=== PATIENT | female | born 1985 | race Two or more races ===

== ENCOUNTER 2021-12-11 20:21 | Emergency (ER) | payer OTHER, SELFPAY ==
[2021-12-11 20:29] VITALS: BP 159/85; PULSE 85; RESP 18; TEMP 36.9; O2SAT 99; BMI 41.8
[2021-12-11 22:29] LABS: MANUAL DIFF FLAG NO
--- NOTE | 2021-12-11 22:30 | ED_ITS ---
HPI - General Adult General Chief complaint: General Medical Stated complaint: hemorrhoid Time Seen by Provider: 12/11/21 22:19 Source: patient and family Mode of arrival: ambulatory Limitations: no limitations History of Present Illness HPI narrative: 36-year-old female no significant medical history presents to the emergency department with concerns possibly having a hemorrhoid. Patient tells me she has been having this for about 2 weeks. She tells me that this started after a bout of straining after patient being constipated. She tells me that she passed hard stool and then she noticed a bump in her rectum. She tells me that yesterday she noted blood in her stool, and in the toilet seat. She tells me it is bright red blood. She tells me that she has a stinging/burning sensation when she has bowel movements. No family or personal history of colorectal cancer, no colonoscopy hx. This is never happened to her before. She denies any dizziness, weakness, headache, vision changes, fatigue, nausea, vomiting, abdominal pain, chest pain, shortness of breath. Onset (ago): week(s) (2) Location: buttocks Radiation: non-radiation Severity: moderate Related Data Previous Rx's Medication Instructions Recorded docusate sodium 100 mg capsule 100 mg PO BID #20 cap 12/11/21 (Colace) pramoxine 1 % topical foam 1 appl MA BID #15 g 12/11/21 (Proctofoam) sennosides 8.6 mg tablet (senna) 8.6 mg PO BEDTIME #14 tab 12/11/21 Allergies Allergy/AdvReac Type Severity Reaction Status Date / Time No Known Allergies Allergy Verified 12/11/21 20:31 Review of Systems Review of Systems: Constitutional : No Weight loss, No Fever, No Chills, No Fatigue, No Malaise ENT/Mouth : No sore throat, No Rhinorrhea Eyes: No Eye Pain, No Swelling, No Redness Cardiovascular : No Chest Pain, No SOB, No Dyspnea on Exertion, No Orthopnea, No Edema, No Palpitations Respiratory : No Cough, No Sputum, No Wheezing Gastrointestinal : No Nausea, No Vomiting, No Diarrhea, No Constipation, No abdominal Pain, No Hematochezia, No Melena Genitourinary : No Dysuria, No Urinary Frequency, No Hematuria, Musculoskeletal : No joint pain, No Myalgias, No Joint Swelling Skin : No Skin Lesions, No rash Neuro : No Weakness, No Numbness, No Dizziness, No Headache Psych : No Anxiety/Panic, No Depression All other systems reviewed and are negative Yes all other systems are reviewed and are negative [facility] Past Medical History Attestation statement: The following information was validated with the patient. Source: old records reviewed and nursing notes reviewed Social History Social History Advance Directives: No Advance Directives Information Provided: No Physical Exam ED Vital Signs: Vital Signs - 24 hr 12/11/21 20:29 Temperature 98.5 F Pulse Rate 85 Respiratory Rate 18 Blood Pressure 159/85 H Pulse Oximetry 99 BMI result Body Mass Index 41.8 VSS Appearance: Alert.? Oriented X3.? No acute distress.? Head: Normocephalic, atraumatic, no step-offs or deformities Eyes: Pupils equal, round and reactive to light.? ENT: Pharynx normal.? Neck: Normal inspection.? Neck supple.? CVS: Normal heart rate and rhythm.? Pulses normal.? Respiratory: No respiratory distress.? Breath sounds normal.? Abdomen: Soft and nontender.? Skin: Skin warm and dry.? Normal skin color.? Normal skin turgor.? Rectal exam: Nonthrombosed external hemorrhoid noted and possible internal hemorrhoids noted non bleeding Extremities: No lower extremity edema.? No calf ttp. 5/5 strength to bilateral upper and lower extremities Back: No midline tenderness, no C-spine tenderness, full range of motion, no CVA tenderness bilaterally Neuro: Oriented X 3.? No motor deficit.? No sensory deficit. CN 2-12 intact Course Reevaluation(s) Reevaluation #1: History and physical examination consistent with hemorrhoid. Labs with no acute findings. OBS negative. At this time patient will be discharged home with Proctofoam. Advised her to return new or worsening symptoms. Outlined is on her discharge. Comfortable discharge home Time: 23:41 Medical Decision Making [facility] Narrative Medical decision making narrative: 2340 36 yo f presents w/ concerns of hemorrhoids x2 weeks, sometimes she tells me that they bleed. Physical examination significant for non thrombosed, nonincarcerated external hemorrhoid, and possibly internal hemorrhoids. Rectal exam was done OBS was sent to the lab. Lungs clear. Regular rate and rhythm. Abdomen soft nontender nondistended. Neuro exam nonfocal. Vital signs stable. Plan at this time is to obtain a CBC to look at patients hemoglobin and hematocrit, I will also obtain an OBS. Unlikely that this is a GI bleed, likely bleeding hemorrhoids or anal fissure. Medical Records Medical records reviewed: Yes I reviewed the patient's medical records. Lab Data Lab results reviewed: Yes I reviewed the patient's lab results. Result diagrams: 12/11/21 22:23 Labs: Lab Results 12/11/21 12/11/21 Range/Units 22:23 22:23 WBC 11.0 H (4.8-10.8) X10*3/uL RBC 4.16 L (4.20-5.50) X10*6/uL Hgb 11.7 L (12.0-16.0) g/dl Hct 35.8 L (37.0-47.0) % MCV 86.1 (80.0-98.0) fL MCH 28.1 (27.0-33.0) pg MCHC 32.7 (31.0-35.0) g/dl RDW 13.5 (11.0-16.0) % Plt Count 275 (160-400) X10*3/uL MPV 10.8 (9.4-12.3) fL Immature Gran % (Auto) 0.4 (0.0-0.4) % Neut % (Auto) 69.9 (45-73) % Lymph % (Auto) 23.2 (20-40) % [place] % (Auto) 4.2 (2-11) % Eos % (Auto) 1.9 (0-4) % Baso % (Auto) 0.4 (0-2) % Lymph # (Auto) 2.6 (1.2-4.9) X10*3/uL [place] # (Auto) 0.5 (0.1-1.2) X10*3/uL Eos # (Auto) 0.2 (0.0-0.4) X10*3/uL Baso # (Auto) 0.0 (0.0-0.2) X10*3/uL Abs Immat Gran (auto) 0.04 H (0.00-0.03) X10*3/uL Absolute Neuts (auto) 7.7 (2.0-8.3) x10*3/uL Absolute Nucleated RBC 0.000 (0.0-0.012) X10*3/uL Nucleated RBC % (auto) 0.0 (0.0-0.2) /100WBC Stool Occult Blood NEGATIVE (NEGATIVE) Critical Care Time Critical Care Time Critical Care Time: No Discharge Plan Discharge Clinical Impression: Acute hemorrhoid Patient Disposition: Home, Self-Care Instructions: Hemorrhoids (ED) Additional Instructions: Take your medications as prescribed. If you were prescribed antibiotics today, it is important that you take your medication to their entirety, do not skip any doses, do not finish them early. Follow-up with your primary care provider this week. Return to the emergency department with new or worsening symptoms. Such as fevers, chills, chest pain, shortness of breath, nausea, vomiting, dizziness, headache, vision changes, lethargy, dizziness, weakness, worsening bleeding In case of emergency call 911 Your rectal exam did not show blood. Your blood work showed that your hemoglobin and hematocrit were stable. Prescriptions: New pramoxine [Proctofoam] 1 % foam 1 appl MA BID Qty: 15 0RF sennosides [senna] 8.6 mg tablet 8.6 mg PO BEDTIME Qty: 14 0RF docusate sodium [Colace] 100 mg capsule 100 mg PO BID Qty: 20 0RF Referrals: Physician,Unknown J [Primary Care Provider] - 3 days Stand Alone Forms: Work/School Release Interventions: ED Discharge Assessment Last Done: 12/11/21 23:12 Discharge Date/Time: 12/11/21 23:12
[2021-12-11 22:34] LABS: OBS Int Ctl Valid YES; OBS1 NEGATIVE (NEGATIVE)
[2021-12-11 22:37] LABS: Basophils Percent Auto 0.4 % (0-2); Eosinophils Absolute Auto 0.2 X10*3/uL (0.0-0.4); Eosinophils Percent Auto 1.9 % (0-4); Hematocrit 35.8 % (37.0-47.0); Hemoglobin 11.7 g/dl (12.0-16.0); Imm Gran Abs Auto 0.04 X10*3/uL (0.00-0.03); Imm Gran Pct Auto 0.4 % (0.0-0.4); Lymphocytes Absolute Auto 2.6 X10*3/uL (1.2-4.9); Lymphocytes Percent Auto 23.2 % (20-40); Mean Corpuscular HGB Conc 32.7 g/dl (31.0-35.0); Mean Corpuscular Hemoglobin 28.1 pg (27.0-33.0); Mean Corpuscular Volume 86.1 fL (80.0-98.0); Mean Platelet Volume 10.8 fL (9.4-12.3); Monocytes Absolute Auto 0.5 X10*3/uL (0.1-1.2); Monocytes Percent Auto 4.2 % (2-11); Neutrophils Absolute Auto 7.7 x10*3/uL (2.0-8.3); Neutrophils Percent Auto 69.9 % (45-73); Platelet Count 275 X10*3/uL (160-400); Red Blood Count 4.16 X10*6/uL (4.20-5.50); Red Cell Distribution Width 13.5 % (11.0-16.0)
== END 2021-12-11 23:12 | disposition home or self-care (01) ==
PROVIDERS: Physician Assistant; Emergency Provider Internal Medicine
DX: K64.9 Unspecified hemorrhoids (principal); Z79.899 Other long term (current) drug therapy
CPT/HCPCS: 36415; 82272; 85025; 99283; 99284

== ENCOUNTER 2025-03-11 14:39 | Outpatient (REF) | payer OTHER, SELFPAY ==
--- NOTE | ~2025-03-11 | XR_ITS ---
EXAMINATION: XR KNEE, LEFT CLINICAL INFORMATION: M25.562 - Pain in left knee COMPARISON: None available. TECHNIQUE: AP view bilateral knees standing, lateral and patellofemoral views left knee. FINDINGS: RIGHT KNEE: No fracture, dislocation, or suspicious bone lesion. Mild medial compartment joint space narrowing. Intramedullary cassie with stabilization screw within the tibia. Normal soft tissues. LEFT KNEE: No fracture, dislocation, or suspicious bone lesion. Normal alignment. There is minimal medial compartment joint space narrowing. Lateral and patellofemoral compartment joint spaces are preserved. There is mild lateral patellar tilt. There is a small suprapatellar joint effusion suspected. Normal soft tissues. XR/XR knee LT 3V IMPRESSION: 1. Mild BILATERAL knee medial compartment joint space narrowing. 2. LEFT knee demonstrating mild lateral patellar tilt and a small suprapatellar joint effusion. Electronically signed by: Ridge Tee MD 03/11/2025 03:13 PM EDT
== END 2025-03-11 14:40 | disposition home or self-care (01) ==
LOC: HO.HOSX 14:39
PROVIDERS: PCP Family Medicine; Visit Provider Physician Assistant
DX: M22.2X2 Patellofemoral disorders, left knee (principal); M25.562 Pain in left knee; M25.462 Effusion, left knee; Z98.890 Other specified postprocedural states
CPT/HCPCS: 73562; 99202

== ENCOUNTER 2025-03-11 14:39 | Outpatient (AMB) | payer OTHER, SELFPAY ==
--- NOTE | 2025-03-11 14:44 | A.OFFVIS_ITS ---
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 Patient was seen by her PCP, and was referred to orthopedics. Patient reports mild shooting pain and clicking with certain movements of her leg, that has been present for about 2 months. States about 2 weeks prior to booking her appointment she has been swelling in her knee that is traveling down her leg making it difficult to bend at her knee. She does not recall injury however her pain presented about a week after she was performing leg exercises at the gym. No other treatment. Hx of right knee surgery about 7 years ago in [place]. 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 She states the pain has been presents for two months and recalls doing an exercise at the gym which caused her pain. She states she was using the leg extension machine when she felt a pain in her knee cap. Since then, she has has discomfort with loading type activities such as squatting, bending and stairs. She has tried occassional IBU with minimal relief. No other treatment to date. 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 Trace joint effusion. Full ROm with crepitus. Retropatellar tenderness laterally with medial sided joint tenderness. No ligamentous laxity. Calf supple, non tender. NVI. Results Reviewed Results Reviewed: XR knee LT 3V IMPRESSION: 1. Mild BILATERAL knee medial compartment joint space narrowing. 2. LEFT knee demonstrating mild lateral patellar tilt and a small suprapatellar joint effusion. Assessment & Plan Assessment & Plan (1) Patellofemoral syndrome, left: Code(s): M22.2X2 - Patellofemoral disorders, left knee Category: Medical Plan: We discussed options which include PT and NSAIDs. I did place an order for PT to work on rom, strength and conditioning exercises. I recommend IBU 800mg tabs po bid x2 weeks for acute flare up. She will modify her activities to avoid excess load on the patella. If symptoms persist or worsen over the next 3-4 weeks, we did discuss the benefits of steroid injection and she will contact me for this, otherwise, f/u prn. Orders: Orders XR knee LT 3V 03/11/25 M25.562 - Pain in left knee Medications: New ibuprofen 800 mg PO Q8H PRN 90 tabs 3RF pain 30 days S52.209D - Unspecified fracture of shaft of unspecified ulna, subsequent encounter for closed fracture with routine healing Discontinued docusate sodium (Colace) Discontinued Reason: Patient no longer taking 100 mg PO BID 20 caps 0RF hydrocortisone acetate (Anusol-HC) Discontinued Reason: Patient no longer taking 25 mg GA BID 24 ea 0RF pramoxine 1% (Proctofoam) Discontinued Reason: Patient no longer taking 1 appl GA BID 15 grams 0RF sennosides (senna) Discontinued Reason: Patient no longer taking 8.6 mg PO BEDTIME 14 tabs 0RF Coding Level of Care Code New Pt Level 3 (97520) Complex EM visit Add On G2211 Diagnoses Patellofemoral syndrome, left M22.2X2
[2025-03-11 15:02] VITALS: BMI 41.5
--- OUTSIDE RECORDS SUMMARY | 2025-03-11 15:28 | XMS_ITS | Encounter Summary ---
Author Organization [facility] Address [address] [place] [address] Care Team Providers Care Janitorial Services Supervisor Name Role Phone Physician, Pcp Unknown Primary Care Provider Gabrielle vailable Encounter Details Date Type Department Care Team (Latest Contact Info) Description 12/10/2024 Lab Requisition [facility] - Main Lab [address] [facility] [place] [address] Vikki Pereira MD [address] [address] Encounter for gynecological examination (general) (routine) without abnormal findings Social History Tobacco Use Types Packs/Day Years Used Date Smoking Tobacco: Never Assessed Comments Unknown Sex and Gender Information Value Date Recorded Sex Assigned at Not on file Legal Sex Female 1:41 PM EDT Gender Identity Not on file Sexual Orientation Not on file documented as of this encounter Plan of Treatment Not on file documented as of this encounter Visit Diagnoses Diagnosis Encounter for gynecological examination (general) (routine) without abnormal findings documented in this encounter Care Teams Janitorial Services Supervisor Relationship Specialty Start Date End Date Physician, Pcp Unknown PCP - General 12/10/24 documented as of this encounter
== END 2025-03-11 15:28 | disposition home or self-care (01) ==
LOC: HO.HOS 14:39
PROVIDERS: PCP Family Medicine; Visit Provider Physician Assistant
DX: M22.2X2 Patellofemoral disorders, left knee (principal)
CPT/HCPCS: 99203

== ENCOUNTER → 2025-03-11 14:48 | Outpatient (BNV) | payer OTHER, SELFPAY | PROVIDERS: PCP Family Medicine; Visit Provider Radiology Diagnostic Radiology | DX: M25.562 Pain in left knee (principal) | CPT/HCPCS: 73562 ==

== ENCOUNTER 2025-08-05 14:46 | Outpatient (AMB) | payer OTHER, SELFPAY ==
--- NOTE | 2025-08-05 14:53 | A.OFFVIS_ITS ---
Vital Signs 08/05/25 14:56 Height 5 ft 7 in Weight 265 lb BMI 41.5 Intake Visit Reasons: OV-Lt knee pain f/u Intake Note: Palak is a 40 year old female who presents today for a follow up of left knee pain. At her last visit she was referred to physical therapy, recommended ibuprofen 800mg twice a day for 2 weeks for acute flare ups. Suggested to modify her activities and avoid excess load on patella. Today patient reports ongoing stiffness with bending of knee. She continues to have swelling in her knee. States stair use has gotten worse since her last visit. Finds no relief with ibuprofen. Allergies No Known Allergies Allergy (Verified 08/05/25 14:56) Medication List - Last Reconciled 08/05/25 by Isabel Sarkar PA-C No Known Home Meds HPI Comments Details: History of Present Illness The patient is a 40 year old female presenting for follow-up of persistent knee pain. She was last seen in the summer and had trialed physical therapy and anti- inflammatory medications, which did not provide significant help. The patient reports that the pain is now most pronounced when going up and down stairs, which she has to do slowly. The patient's symptoms are consistent with prior x-ray findings showing slight lateralization of the patella, causing rubbing on the femur with flexion and extension. She has also made an effort to lose weight. She denies any history of diabetes, acid reflux, or stomach bleeds. Social History - Activity: The patient walks during work. 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 - Reports a crunching sensation in the knee. - Constitutional: Denies diabetes. - Gastrointestinal: Denies history of acid reflux or stomach bleeds. Physical Exam Exam Exam: Physical Exam - Musculoskeletal: Examination of the knee reveals palpable crepitus. - Palpation elicits a sensation of pressure without chela pain. Vital Signs: BMI result Body Mass Index 41.5 Office Procedures AMB Joint Injection/Aspiration Joint Injection/Aspiration Primary Site: Left Knee Prep: site was prepped using aseptic technique, ethochloride spray was applied and injection warnings given Injected: 40 mg of, Decadron, with 3 mL of, 1% plain Lidocaine, 0.25% Bupivacaine and in the joint Approach Used: anterolateral Procedure: The patient tolerated the procedure well and there was some relief with the local anesthesia Coding 60417 - Glenohumeral/Tronchanteric Bursa/Intraarticular Procedure code (CPT) selection complete Assessment & Plan Assessment & Plan (1) Patellofemoral syndrome, left: Code(s): M22.2X2 - Patellofemoral disorders, left knee Category: Medical Plan 1. Patellofemoral Pain Syndrome The patient's knee pain is attributed to patellofemoral irritation, described as a chronic soft, irritated spot behind the patella, which is consistent with X- ray findings of a laterally displaced patella. Previous trials of physical therapy and anti-inflammatories have provided limited relief. The plan is to administer a cortisone injection mixed with lidocaine into the knee joint to directly address the inflammation. A prescription for naproxen will be provided for twice-daily use as needed for intermittent flare-ups. She was counseled to use it occasionally due to potential kidney side effects with long-term use. The patient was advised to avoid activities that elicit pain, such as deep bending, squatting, and excessive stair climbing. The goal of the injection is to reduce inflammation and pain to a level where she can progress with strengthening exercises targeting the quadriceps, hamstrings, and gluteal muscles. We also discussed medications, and I will prescribe naproxen to try instead of ibuprofen. I counseled her on the potential for kidney side effects with long- term NSAID use and advised taking it only occasionally for flare-ups. Consent The risks, benefits, and alternatives to a cortisone injection in the knee were discussed with the patient. It was explained that the procedure involves injecting a mixture of cortisone and lidocaine directly into the joint to reduce inflammation and pain. The patient was informed that the full effect may take from a couple of days to a couple of weeks to become apparent. Alternatives, including continuing with avoidance of painful activities and oral anti- inflammatories, were implicitly discussed as the current, less effective management. The patient understood the proposed treatment and provided verbal consent to proceed with the injection. Patient was informed and verbally consented to the use of an ambient scribe for clinic note documentation during this visit. Medications: New naproxen 500 mg PO BID 60 tabs 3RF 30 days Coding Level of Care Code Est Pt Level 3 (72699) Add On Problem Visit Only Diagnoses Patellofemoral syndrome, left M22.2X2 CPT Codes Coding - Joint 7: 13190 - Glenohumeral/Tronchanteric Bursa/Intraarticular ([id number])
[2025-08-05 14:56] VITALS: BMI 41.5
--- OUTSIDE RECORDS SUMMARY | 2025-08-05 21:15 | XMS_ITS | Encounter Summary ---
Author Organization [facility] Address [address] [place] [address] Care Team Providers Care Fur Glazer Name Role Phone Physician, Pcp Unknown Primary Care Provider Gabrielle vailable Encounter Details Date Type Department Care Team (Latest Contact Info) Description 12/12/2024 Lab Requisition [facility] - Main Lab [address] [place] [address] Vikki Pereira MD [address] [phone] Encounter for screening for infections with a predominantly sexual mode of transmission Social History Tobacco Use Types Packs/Day Years Used Date Smoking Tobacco: Never Assessed Comments Unknown Sex and Gender Information Value Date Recorded Sex Assigned at Not on file Legal Sex Female 1:41 PM EDT Gender Identity Not on file Sexual Orientation Not on file documented as of this encounter Plan of Treatment Not on file documented as of this encounter Procedures Procedure Name Priority Date/Time Associated Diagnosis Comments CHLAMYDIA TRACHOMATIS AND NEISSERIA GONORRHOEAE BY TMA, THINPREP Routine 12/10/2024 12:00 AM EDT Encounter for screening for infections with a predominantly sexual mode of transmission PAP SMEAR Routine 12/10/2024 12:00 AM EDT Encounter for screening for infections with a predominantly sexual mode of transmission documented in this encounter Results * Chlamydia trachomatis and neisseria gonorrhoeae by tma, thinprep (12/10/2024 12:00 AM EDT) N. gonorrhoeae, RNA Probe Negative Negative LAB MICROBIOLOGY METHOD 12/12/2024 12:16 PM EDT [facility] Chlamydia, RNA Probe Negative Negative LAB MICROBIOLOGY METHOD 12/12/2024 12:16 PM EDT [facility] Brushing/Spatula Cervix uteri structure / Unknown 12/10/2024 12/12/2024 6:29 AM EDT Vikki Pereira MD LAB CYTOLOGY ORDERABLES Final Result [facility] [address] [place] [address], * Pap smear (12/10/2024 12:00 AM EDT) Interpretation Negative for intraepithelial lesion or malignancy 12/17/2024 11:52 AM EDT [facility] at 1152 EDT Other Findings Shift in saad suggestive of bacterial vaginosis 12/17/2024 11:52 AM T [facility] Specimen Adequacy Satisfactory for evaluation, endocervical/aguirre sformation zone component present 12/17/2024 11:52 AM EDT [facility] Pap Methodology Liquid Based Pap Test 12/17/2024 11:52 AM EDT [facility] Disclaimer The Pap test is a screening test which carries an inherent false negative rate. These test results should be correlated with the patient's clinical findings and history. This Pap test was processed using an automated screening system. Technical cytopathology services provided by [facility], at [address] [place] [id number] (CLIA # [id number]/Sandy Schuler MD, Features Reporter.) 12/17/2024 11:52 AM EDT [facility] Console Pap Interpretation Reported 12/17/2024 11:52 AM [facility] Brushing/Spatula Cervix uteri structure / Unknown 12/10/2024 12/12/2024 6:29 AM EDT us Vikki Pereira MD LAB CYTOLOGY ORDERABLES Final Result [facility] [address] [place] [address], documented in this encounter Visit Diagnoses Diagnosis Encounter for screening for infections with a predominantly sexual mode of transmission documented in this encounter Care Teams Fur Glazer Relationship Specialty Start Date End Date Physician, Pcp Unknown PCP - General 12/10/24 documented as of this encounter
--- OUTSIDE RECORDS SUMMARY | 2025-08-05 21:15 | XMS_ITS | Encounter Summary ---
Author Organization [facility] Address [address] [place] [address] Care Team Providers Care Scrubber System Attendant Name Role Phone Physician, Pcp Unknown Primary Care Provider Gabrielle vailable Encounter Details Date Type Department Care Team (Latest Contact Info) Description 12/10/2024 Lab Requisition [facility] - Main Lab [address] [facility] [place] [address] Vikki Pereira MD [address] [phone] Encounter for gynecological examination (general) [...] findings documented in this encounter Care Teams Scrubber System Attendant Relationship Specialty Start Date End Date Physician, Pcp Unknown PCP - General 12/10/24 documented as of this encounter
--- OUTSIDE RECORDS SUMMARY | 2025-08-05 21:15 | XMS_ITS | Clinical Summary ---
Author Organization [address] [facility] Address [address] [place] [address] Phone Care Team Providers Care Board Setter Name Role Phone Physician, Pcp Unknown Primary Care Provider Gabrielle vailable Social History Tobacco Use Types Packs/Day Years Used Date Smoking Tobacco: Never Assessed Comments Unknown Sex and Gender Information Value Date Recorded Sex Assigned at Not on file Legal Sex Female 1:41 PM EDT Gender Identity Not on file Sexual Orientation Not on file Plan of Treatment Health Maintenance Due Date Last Done Comments DTaP,Tdap,and Td Vaccines (1 - Tdap) 2005 Hepatitis B Vaccines (1 of 3 - 19+ 3-dose series) 2005 HPV Vaccines (1 - 3-dose SCD M series) 2013 Depression Screening 08/22/2024 HIV Screening 12/10/2024 Hepatitis C Screening 12/10/2024 Social Influencers of Health Screening 12/10/2024 COVID-19 Vaccine ( - 2024-2 6 season) 2025 10/04/2021, 02/01/2021, 01/04/2021 Influenza Vaccine (#1) 2025 Cervical Cancer Screening: P ap Smear 12/11/2027 12/10/2024 RSV Immunization Adult Patients (1 - 1-dose 75+ series) 2061 HIB Vaccines Aged Out No longer eligi ble based on patient's age to complete this topic Hepatitis A Vaccines Aged Out No long er eligible based on patient's age to complete this topic IPV Vaccines Aged Out No longer eligi ble based on patient's age to complete this topic MMR Vaccines Aged Out No longer eligi ble based on patient's age to complete this topic Meningococcal ACWY Vaccine Aged Out N o longer eligible based on patient's age to complete this topic Meningococcal B Vaccine Aged Out No l onger eligible based on patient's age to complete this topic Pneumococcal Vaccine: Pediatrics (0 to 5 Years) and At-Risk Patients (6 to 49 Years) Aged Out No longer eligible b ased on patient's age to complete this topic RSV Immunization Patients Under 20 months Aged Out No longer eligible b ased on patient's age to complete this topic Varicella Vaccines Aged Out No longer eligible based on patient's age to complete this topic Procedures Procedure Name Priority Date/Time Associated Diagnosis Comments PAP SMEAR Routine 12/10/2024 12:00 AM EDT Encounter for screening for infections with a predominantly sexual mode of transmission from Last 3 Months or Most Recently Relevant to Health Maintenance Results * Pap smear (12/10/2024 12:00 AM EDT) Interpretation Negative for intraepithelial lesion or malignancy 12/17/2024 11:52 AM EDT [facility] at 1152 EDT Other Findings Shift in saad suggestive of bacterial vaginosis 12/17/2024 11:52 AM [facility] Specimen Adequacy Satisfactory for evaluation, endocervical/aguirre sformation zone component present 12/17/2024 11:52 AM [facility] Pap Methodology Liquid Based Pap Test 12/17/2024 11:52 AM [facility] Disclaimer The Pap test is a screening test which carries an inherent false negative rate. These test results should be correlated with the patient's clinical findings and history. This Pap test was processed using an automated screening system. Technical cytopathology services provided by [facility], at [address] [place] [id number] (CLIA # [id number]/Sandy Schuler MD, [employer].) 12/17/2024 11:52 AM [facility] Console Pap Interpretation Reported 12/17/2024 11:52 AM [facility] Brushing/Spatula Cervix uteri structure / Unknown 12/10/2024 12/12/2024 6:29 AM EDT us Vikki Pereira MD LAB CYTOLOGY ORDERABLES Final Result [facility] [address] [place] [address], [place] [phone] from Last 3 Months or Most Recently Relevant to Health Maintenance Insurance [facility] [employer] Care Teams Board Setter Relationship Specialty Start Date End Date Physician, Pcp Unknown PCP - General 12/10/24
== END 2025-08-05 16:14 | disposition home or self-care (01) ==
LOC: HO.HOS 14:47
PROVIDERS: PCP Family Medicine; Visit Provider Physician Assistant
DX: M22.2X2 Patellofemoral disorders, left knee (principal)
CPT/HCPCS: 20610; 99213

== ENCOUNTER → 2025-08-05 14:46 | Outpatient (BNVA) | payer OTHER, SELFPAY | PROVIDERS: PCP Family Medicine; Visit Provider Physician Assistant | DX: M22.2X2 Patellofemoral disorders, left knee (principal) | CPT/HCPCS: 20610; 99212; J0665; J1100; J2003 ==